=== PATIENT | female | born 1935 | race African-American/Black ===

== ENCOUNTER 2019-11-02 09:53 | Observation (INO) ==
[2019-11-02 10:49] LABS: Albumin 3.2 G/DL (3.4-5.0); Basophils % 0.7 % (0.0-0.8); Bilirubin,Total 0.4 MG/DL (0.2-1.0); Calcium 8.6 MG/DL (8.5-10.1); Eosinophils % 0.3 % (0.00-10.9); Hematocrit 35.4 VOL% (35.7-47.0); Hemoglobin 11.7 GM/DL (12.0-16.0); Immature Granulocytes % 0.3 %; Immature Granulocytes Absolute 0.02 #; Lymphocytes # 1.5 10*3/uL (1.4-4.0); Lymphocytes % 26.7 % (21.3-54.2); Mean Corpuscular HGB Conc 33.1 GM/DL (32-36); Mean Corpuscular Volume 96.7 FL (87-102); Mean Platelet Volume 8.8 FL (9.6-12.0); Monocytes % 8.8 % (1.7-12.7); Neutrophils % 63.2 % (38.7-73.9); Osmolality,Calculated 269.8 MOS/KG (273-304); Platelet Count 233 T/CUMM (130-400); Red Blood Count 3.66 MC/CUMM (3.8-5.5); Red Cell Distribution Width 14.3 % (9.3-17.3); Total Protein 5.9 G/DL (6.4-8.3); White Blood Count 5.8 T/CUMM (4-12)
[2019-11-02] MEDS ORDERED: MORPHINE 4 MG/1 ML VIAL IV STA ×2 (11:01→12:17)
[2019-11-02] MEDS ORDERED: ONDANSETRON 4 MG/2 ML VIAL IV STA (11:01)
[2019-11-02 12:18] LABS: Apearance,Urine CLEAR (Clear); Bilirubin,Urine Negative (Negative); Blood, Urine Negative (Negative); Glucose,Urine (UA) Negative (Negative); Ketones,Urine Negative (Negative); Nitrite,Urine Negative (Negative); Protein,Urine Negative; RBC,Urine 2 /HPF (0-4); Squamous Epithelial Cell,Urine Occasional /HPF (0-10); Urine Color Yellow (Yellow); Urine Specific Gravity 1.011 (1.001-1.035); Urine Urobilinogen < 2.0 EU/DL (0.2-1.0); WBC,Urine 1 /HPF (0-6)
[2019-11-02] MEDS ORDERED: ONDANSETRON 4 MG/2 ML VIAL IV PRN (13:44)
[2019-11-02] MEDS: SODIUM CHLORIDE 0.9% 1,000 ML IV SCH (14:03)
[2019-11-02] MEDS ORDERED: hydrALAZINE 20 MG/1 ML VIAL IV PRN (16:14)
[2019-11-02] MEDS ORDERED: MAGNESIUM SULF RIDER 2 GM in PREMIX 1 EACH IV PRN (16:14)
[2019-11-02] MEDS ORDERED: MAGNESIUM SULF RIDER 4 GM in PREMIX 1 EACH IV PRN (16:14)
[2019-11-02] MEDS: POTASSIUM CHLORIDE RIDER 10 MEQ in PREMIX 1 EACH IV PRN ×4 (17:19→23:13)
[2019-11-02] MEDS: POTASSIUM CHLORIDE 10 MEQ TABLET PO SCH (21:29)
[2019-11-02] MEDS: DOCUSATE SODIUM 100 MG CAPSULE PO SCH (21:29)
[2019-11-03] MEDS: ACETAMINOPHEN 325 MG TABLET PO PRN ×2 (00:22→17:36)
[2019-11-03 06:39] LABS: Calcium 8.3 MG/DL (8.5-10.1); Osmolality,Calculated 276.3 MOS/KG (273-304)
[2019-11-03] MEDS: SODIUM CHLORIDE 0.9% 1,000 ML IV SCH (09:17)
[2019-11-03] MEDS: TAMOXIFEN 10 MG TABLET PO SCH (09:18)
[2019-11-03] MEDS: POTASSIUM CHLORIDE 10 MEQ TABLET PO SCH ×2 (09:18→21:45)
[2019-11-03] MEDS: PANTOPRAZOLE 40 MG TABLET PO SCH (09:19)
[2019-11-03] MEDS: ASPIRIN EC 81 MG TABLET PO SCH (09:19)
[2019-11-03] MEDS: DOCUSATE SODIUM 100 MG CAPSULE PO SCH ×2 (09:19→21:45)
[2019-11-03] MEDS: metroNIDAZOLE INJ 500 MG in PREMIX 1 EACH IV SCH ×2 (14:32→21:44)
[2019-11-03] MEDS: CIPROFLOXACIN INJ 400 MG in PREMIX 1 EACH IV SCH (16:41)
[2019-11-04] MEDS: ACETAMINOPHEN 325 MG TABLET PO PRN ×2 (01:06→18:24)
[2019-11-04] MEDS: SODIUM CHLORIDE 0.9% 1,000 ML IV SCH ×2 (01:10→21:25)
[2019-11-04] MEDS: CIPROFLOXACIN INJ 400 MG in PREMIX 1 EACH IV SCH ×2 (03:34→16:34)
[2019-11-04] MEDS: metroNIDAZOLE INJ 500 MG in PREMIX 1 EACH IV SCH ×3 (05:35→20:41)
[2019-11-04] MEDS ORDERED: SIMETHICONE CHEW 125 MG TABLET PO PRN (05:56)
[2019-11-04 06:06] LABS: Calcium 8.3 MG/DL (8.5-10.1); Osmolality,Calculated 274.5 MOS/KG (273-304)
[2019-11-04] MEDS ORDERED: LORazepam 2 MG/1 ML VIAL IV PRN (09:22)
[2019-11-04] MEDS: POTASSIUM CHLORIDE 10 MEQ TABLET PO SCH ×2 (09:57→20:41)
[2019-11-04] MEDS: PANTOPRAZOLE 40 MG TABLET PO SCH (09:57)
[2019-11-04] MEDS: DOCUSATE SODIUM 100 MG CAPSULE PO SCH ×2 (09:58→20:41)
[2019-11-04] MEDS: ASPIRIN EC 81 MG TABLET PO SCH (09:58)
[2019-11-04] MEDS: TAMOXIFEN 10 MG TABLET PO SCH (10:05)
[2019-11-04] MEDS ORDERED: traMADol 50 MG TABLET PO ONE (11:00)
[2019-11-04] MEDS ORDERED: SERTRALINE 25 MG TABLET PO SCH (21:00)
[2019-11-05] MEDS: CIPROFLOXACIN INJ 400 MG in PREMIX 1 EACH IV SCH (03:39)
[2019-11-05] MEDS: metroNIDAZOLE INJ 500 MG in PREMIX 1 EACH IV SCH (05:30)
[2019-11-05 05:43] LABS: Osmolality,Calculated 280.1 MOS/KG (273-304)
[2019-11-05] MEDS: TAMOXIFEN 10 MG TABLET PO SCH (08:42)
[2019-11-05] MEDS: ASPIRIN EC 81 MG TABLET PO SCH (08:42)
[2019-11-05] MEDS: POTASSIUM CHLORIDE 10 MEQ TABLET PO SCH (08:42)
[2019-11-05] MEDS: PANTOPRAZOLE 40 MG TABLET PO SCH (08:42)
[2019-11-05] MEDS: DOCUSATE SODIUM 100 MG CAPSULE PO SCH (08:42)
[2019-11-05 11:29] VITALS: BP 148/70
== END 2019-11-05 13:59 ==
LOC: N.ED 09:53 → N.EDINP 09:53 → N.2E 13:30
PROVIDERS: ADMIT Family Medicine; ATTEND Family Medicine

== ENCOUNTER 2020-05-30 09:51 | Inpatient (IN) ==
[2020-05-30 10:51] LABS: Basophils % 0.6 % (0.0-0.8); Eosinophils % 0.4 % (0.00-10.9); Hematocrit 38.4 VOL% (35.7-47.0); Hemoglobin 12.7 GM/DL (12.0-16.0); Immature Granulocytes % 0.7 %; Immature Granulocytes Absolute 0.05 #; Lymphocytes # 1.6 10*3/uL (1.4-4.0); Lymphocytes % 22.8 % (21.3-54.2); Mean Corpuscular HGB Conc 33.1 GM/DL (32-36); Mean Corpuscular Volume 99.5 FL (87-102); Mean Platelet Volume 8.7 FL (9.6-12.0); Monocytes % 7.4 % (1.7-12.7); Neutrophils % 68.1 % (38.7-73.9); Platelet Count 236 T/CUMM (130-400); Red Blood Count 3.86 MC/CUMM (3.8-5.5); Red Cell Distribution Width 13.2 % (9.3-17.3); White Blood Count 6.9 T/CUMM (4-12)
[2020-05-30] MEDS ORDERED: ONDANSETRON 4 MG/2 ML VIAL IM STA (11:13)
[2020-05-30] MEDS ORDERED: ONDANSETRON 4 MG/2 ML VIAL ONE (11:14)
[2020-05-30 11:19] LABS: Albumin 3.6 G/DL (3.4-5.0); Bilirubin,Total 0.5 MG/DL (0.2-1.0); Calcium 9.8 MG/DL (8.5-10.1); Osmolality,Calculated 276.7 MOS/KG (273-304); Total Protein 7.7 G/DL (6.4-8.3)
[2020-05-30] MEDS ORDERED: DEXTROSE 50% 25 GM/50 ML VIAL IV PRN (11:52)
[2020-05-30] MEDS ORDERED: GLUCAGON 1 MG VIAL IM PRN (11:52)
[2020-05-30] MEDS ORDERED: ACETAMINOPHEN 325 MG TABLET PO PRN (11:52)
[2020-05-30] MEDS: SODIUM CHLORIDE 0.9% 1,000 ML IV SCH ×2 (12:56→23:00)
[2020-05-30 15:11] LABS: Apearance,Urine Slightly Hazy (Clear); Bilirubin,Urine Negative (Negative); Blood, Urine Negative (Negative); Glucose,Urine (UA) Negative (Negative); Ketones,Urine Negative (Negative); Mucus,Urine Occasional /LPF (Occasional); Nitrite,Urine Negative (Negative); Protein,Urine 30 MG/DL; RBC,Urine 14 /HPF (0-4); Squamous Epithelial Cell,Urine Occasional /HPF (0-10); Urine Color Yellow (Yellow); Urine Specific Gravity 1.017 (1.001-1.035); Urine Urobilinogen < 2.0 EU/DL (0.2-1.0); WBC,Urine 6 /HPF (0-6)
[2020-05-30] MEDS ORDERED: ACETAMINOPHEN 325 MG TABLET PO ONE (15:57)
[2020-05-30] MEDS: cefTRIAXone 1,000 MG in SYRINGE 1 EACH IV SCH (16:14)
[2020-05-30] MEDS: traMADol 50 MG TABLET PO PRN (16:19)
[2020-05-30] MEDS: POLYETHYLENE GLYCOL POWDER 17 GM PACK PO SCH (17:40)
[2020-05-31 04:54] LABS: Basophils % 0.7 % (0.0-0.8); Eosinophils # 0.1 10*3/uL (0.0-0.87); Eosinophils % 0.9 % (0.00-10.9); Hematocrit 35.3 VOL% (35.7-47.0); Hemoglobin 11.6 GM/DL (12.0-16.0); Immature Granulocytes % 0.2 %; Immature Granulocytes Absolute 0.01 #; Lymphocytes # 1.5 10*3/uL (1.4-4.0); Lymphocytes % 27.6 % (21.3-54.2); Mean Corpuscular HGB Conc 32.9 GM/DL (32-36); Mean Corpuscular Volume 97.5 FL (87-102); Monocytes % 10.9 % (1.7-12.7); Neutrophils % 59.7 % (38.7-73.9); Platelet Count 220 T/CUMM (130-400); Red Blood Count 3.62 MC/CUMM (3.8-5.5); Red Cell Distribution Width 13.4 % (9.3-17.3); White Blood Count 5.6 T/CUMM (4-12)
[2020-05-31] MEDS: ONDANSETRON 4 MG/2 ML VIAL IV PRN ×2 (05:27→14:27)
[2020-05-31] MEDS: traMADol 50 MG TABLET PO PRN ×2 (05:27→14:27)
[2020-05-31 05:50] LABS: Calcium 8.8 MG/DL (8.5-10.1); Osmolality,Calculated 278.4 MOS/KG (273-304); Risk Ratio 3.22; Thyroid Stimulating Hormone 0.596 uIU/ml (0.358-3.74)
[2020-05-31] MEDS: SODIUM CHLORIDE 0.9% 1,000 ML IV SCH ×2 (09:15→17:28)
[2020-05-31] MEDS: POLYETHYLENE GLYCOL POWDER 17 GM PACK PO SCH (09:17)
[2020-05-31] MEDS: cefTRIAXone 1,000 MG in SYRINGE 1 EACH IV SCH (17:32)
[2020-06-01] MEDS: CLORAZEPATE 3.75 MG TABLET PO PRN ×2 (00:30→21:09)
[2020-06-01] MEDS: SODIUM CHLORIDE 0.9% 1,000 ML IV SCH ×3 (05:18→23:52)
[2020-06-01 05:56] LABS: Basophils % 0.6 % (0.0-0.8); Eosinophils % 0.6 % (0.00-10.9); Hematocrit 35.8 VOL% (35.7-47.0); Immature Granulocytes % 0.3 %; Immature Granulocytes Absolute 0.02 #; Lymphocytes # 2.3 10*3/uL (1.4-4.0); Lymphocytes % 36.3 % (21.3-54.2); Mean Corpuscular HGB Conc 33.5 GM/DL (32-36); Mean Corpuscular Volume 97.8 FL (87-102); Mean Platelet Volume 9.4 FL (9.6-12.0); Monocytes % 9.8 % (1.7-12.7); Neutrophils % 52.4 % (38.7-73.9); Platelet Count 227 T/CUMM (130-400); Red Blood Count 3.66 MC/CUMM (3.8-5.5); Red Cell Distribution Width 13.2 % (9.3-17.3); White Blood Count 6.3 T/CUMM (4-12)
[2020-06-01 06:19] LABS: Calcium 8.6 MG/DL (8.5-10.1); Osmolality,Calculated 278.3 MOS/KG (273-304)
[2020-06-01] MEDS ORDERED: LACTATED RINGERS 1,000 ML IV SCH (08:00)
[2020-06-01] MEDS ORDERED: propofoL 200 MG/20 ML VIAL IV ONE (09:00)
[2020-06-01] MEDS ORDERED: LIDOCAINE 2% 5 ML VIAL ONE (09:00)
[2020-06-01] MEDS: POLYETHYLENE GLYCOL POWDER 17 GM PACK PO SCH (09:59)
[2020-06-01] MEDS: traMADol 50 MG TABLET PO PRN (17:01)
[2020-06-01] MEDS: cefTRIAXone 1,000 MG in SYRINGE 1 EACH IV SCH (17:02)
[2020-06-02] MEDS: ONDANSETRON 4 MG/2 ML VIAL IV PRN (05:49)
[2020-06-02 06:47] LABS: Calcium 8.4 MG/DL (8.5-10.1); Osmolality,Calculated 279.1 MOS/KG (273-304)
[2020-06-02 08:22] LABS: Basophils % 0.3 % (0.0-0.8); Eosinophils # 0.1 10*3/uL (0.0-0.87); Eosinophils % 1.2 % (0.00-10.9); Hematocrit 35.2 VOL% (35.7-47.0); Hemoglobin 11.8 GM/DL (12.0-16.0); Immature Granulocytes % 0.2 %; Immature Granulocytes Absolute 0.01 #; Lymphocytes # 1.8 10*3/uL (1.4-4.0); Mean Corpuscular HGB Conc 33.5 GM/DL (32-36); Mean Corpuscular Volume 97.5 FL (87-102); Monocytes % 10.7 % (1.7-12.7); Neutrophils % 56.6 % (38.7-73.9); Platelet Count 216 T/CUMM (130-400); Red Blood Count 3.61 MC/CUMM (3.8-5.5); Red Cell Distribution Width 13.2 % (9.3-17.3); White Blood Count 5.9 T/CUMM (4-12)
[2020-06-02] MEDS: POLYETHYLENE GLYCOL POWDER 17 GM PACK PO SCH (09:21)
[2020-06-02 12:21] VITALS: BP 164/79
== END 2020-06-02 13:50 | disposition home health service (06) | DRG 392 ==
LOC: N.ED 09:51 → N.EDINP 11:43 → N.TELEN 13:57
PROVIDERS: ADMIT Internal Medicine; ATTEND Internal Medicine

== ENCOUNTER 2020-07-14 23:15 | Inpatient (IN) ==
[2020-07-14] MEDS ORDERED: SODIUM CHLORIDE 0.9% 500 ML IV STA (23:33)
[2020-07-14] MEDS ORDERED: ASPIRIN 325 MG TABLET PO STA (23:33)
[2020-07-14 23:50] LABS: Basophils # 0.1 10*3/uL (0.0-0.2); Basophils % 0.6 % (0.0-0.8); Eosinophils # 0.1 10*3/uL (0.0-0.87); Eosinophils % 1.1 % (0.00-10.9); Hematocrit 39.3 VOL% (35.7-47.0); Hemoglobin 12.6 GM/DL (12.0-16.0); Immature Granulocytes % 0.4 %; Immature Granulocytes Absolute 0.03 #; Lymphocytes # 1.8 10*3/uL (1.4-4.0); Lymphocytes % 21.9 % (21.3-54.2); Mean Corpuscular HGB Conc 32.1 GM/DL (32-36); Mean Corpuscular Volume 101.8 FL (87-102); Mean Platelet Volume 9.3 FL (9.6-12.0); Monocytes % 6.7 % (1.7-12.7); Neutrophils % 69.3 % (38.7-73.9); Platelet Count 181 T/CUMM (130-400); Red Blood Count 3.86 MC/CUMM (3.8-5.5); Red Cell Distribution Width 13.2 % (9.3-17.3); White Blood Count 8.4 T/CUMM (4-12)
[2020-07-15 00:03] LABS: INR 1.1; PT Patient Result 11.7 SECS (9.8-11.9)
[2020-07-15 00:12] LABS: Alanine Aminotransferase 81 U/L (13-56); Albumin 3.1 G/DL (3.4-5.0); Alkaline Phosphatase 105 U/L (45-117); Aspartate Amino Transferase 73 U/L (0-37); Blood Urea Nitrogen 20 MG/DL (7-18); Calcium 9.4 MG/DL (8.5-10.1); Estimated Glom Filtration Rate 44 ML/MIN; Glucose 126 MG/DL (74-106); Osmolality,Calculated 281.5 MOS/KG (273-304); Total Protein 7.6 G/DL (6.4-8.3)
[2020-07-15 00:14] LABS: Troponin I 0.132 NG/ML (0.00-0.045)
[2020-07-15] MEDS ORDERED: HEPARIN DRIP 25,000 UNITS/500 ML PREMIX IV SCH (00:30)
[2020-07-15] MEDS ORDERED: ALBUTEROL 2.5 MG/3 ML NEB RESP TX STA (00:56)
[2020-07-15] MEDS ORDERED: HEPARIN 5,000 UNIT/1 ML VIAL IV PRN (00:57)
[2020-07-15] MEDS ORDERED: ONDANSETRON 4 MG/2 ML VIAL IV PRN (01:15)
[2020-07-15] MEDS ORDERED: ACETAMINOPHEN 325 MG TABLET PO PRN (01:15)
[2020-07-15] MEDS ORDERED: GLUCAGON 1 MG VIAL IM PRN (01:15)
[2020-07-15] MEDS ORDERED: DEXTROSE 50% 25 GM/50 ML VIAL IV PRN (01:15)
[2020-07-15 02:27] LABS: ABG Base Excess -0.1 MMOL/L (-2.5-2.5); ABG HCO3 24.3 MMOL/L (20-26); ABG Oxygen Saturation 94.7 % (95-100); ABG PCO2 34.3 MM HG (35-48); ABG PH 7.444 (7.35-7.45); ABG PO2 75.6 MM HG (80-95); ABG TCO2 20.9 MMOL/L (23-27)
[2020-07-15 02:29] LABS: Bilirubin,Urine Negative (Negative); Blood, Urine Negative (Negative); Glucose,Urine (UA) Negative (Negative); Granular Casts,Urine 4 /LPF (0-1); Ketones,Urine Negative (Negative); Mucus,Urine Occasional /LPF (Occasional); Nitrite,Urine Negative (Negative); Protein,Urine 30 MG/DL; RBC,Urine 1 /HPF (0-4); Urine Appearance CLEAR (Clear); Urine Color Amber (Yellow); Urine Specific Gravity 1.023 (1.001-1.035); Urine Urobilinogen < 2.0 EU/DL (0.2-1.0)
[2020-07-15] MEDS: CLORAZEPATE 3.75 MG TABLET PO PRN ×2 (04:31→12:38)
[2020-07-15 06:44] LABS: Basophils # 0.1 10*3/uL (0.0-0.2); Basophils % 0.7 % (0.0-0.8); Eosinophils # 0.1 10*3/uL (0.0-0.87); Eosinophils % 0.9 % (0.00-10.9); Hematocrit 37.9 VOL% (35.7-47.0); Hemoglobin 11.9 GM/DL (12.0-16.0); Immature Granulocytes % 0.4 %; Immature Granulocytes Absolute 0.03 #; Lymphocytes # 1.6 10*3/uL (1.4-4.0); Lymphocytes % 22.9 % (21.3-54.2); Mean Corpuscular HGB Conc 31.4 GM/DL (32-36); Mean Corpuscular Volume 101.1 FL (87-102); Mean Platelet Volume 9.5 FL (9.6-12.0); Monocytes % 7.4 % (1.7-12.7); Neutrophils % 67.7 % (38.7-73.9); Platelet Count 170 T/CUMM (130-400); Red Blood Count 3.75 MC/CUMM (3.8-5.5); Red Cell Distribution Width 13.2 % (9.3-17.3); White Blood Count 6.9 T/CUMM (4-12)
[2020-07-15 07:00] LABS: Calcium 9.5 MG/DL (8.5-10.1); Osmolality,Calculated 278.5 MOS/KG (273-304); Risk Ratio 4.84
[2020-07-15] MEDS: ALBUTEROL/IPRATROPIUM 3 ML NEB RESP TX SCH ×3 (07:57→19:25)
[2020-07-15] MEDS ORDERED: POLYETHYLENE GLYCOL POWDER 255 GM BOTTLE PO SCH (09:00)
[2020-07-15] MEDS: POTASSIUM CHLORIDE 10 MEQ TABLET PO SCH ×2 (09:06→21:25)
[2020-07-15] MEDS: APIXABAN 5 MG TABLET PO SCH ×2 (09:06→21:25)
[2020-07-15] MEDS: POLYETHYLENE GLYCOL POWDER 17 GM PACK PO SCH (09:07)
[2020-07-15] MEDS: PANTOPRAZOLE 40 MG TABLET PO SCH ×2 (09:07→09:08)
[2020-07-15] MEDS: GABAPENTIN 100 MG CAPSULE PO SCH ×3 (09:07→21:25)
[2020-07-15] MEDS: FAMOTIDINE 20 MG TABLET PO SCH ×2 (09:07→21:24)
[2020-07-15] MEDS: OXcarbazepine 300 MG TABLET PO SCH (10:24)
[2020-07-15] MEDS: TAMOXIFEN 10 MG TABLET PO SCH (10:25)
[2020-07-15] MEDS: lisinopriL 10 MG TABLET PO SCH (10:25)
[2020-07-15] MEDS: HALOPERIDOL 5 MG/ML AMP IM PRN (14:30)
[2020-07-15] MEDS: DONEPEZIL 5 MG TABLET PO SCH (21:25)
[2020-07-15] MEDS: ZALEPLON 5 MG CAPSULE PO SCH (21:25)
[2020-07-16] MEDS: ALBUTEROL/IPRATROPIUM 3 ML NEB RESP TX SCH ×4 (00:22→20:45)
[2020-07-16 04:58] LABS: Basophils # 0.1 10*3/uL (0.0-0.2); Basophils % 0.9 % (0.0-0.8); Eosinophils # 0.1 10*3/uL (0.0-0.87); Hematocrit 35.5 VOL% (35.7-47.0); Hemoglobin 11.4 GM/DL (12.0-16.0); Immature Granulocytes % 0.4 %; Immature Granulocytes Absolute 0.03 #; Lymphocytes # 1.8 10*3/uL (1.4-4.0); Lymphocytes % 25.2 % (21.3-54.2); Mean Corpuscular HGB Conc 32.1 GM/DL (32-36); Mean Corpuscular Volume 100.9 FL (87-102); Mean Platelet Volume 9.2 FL (9.6-12.0); Monocytes % 7.6 % (1.7-12.7); Neutrophils % 63.9 % (38.7-73.9); Platelet Count 209 T/CUMM (130-400); Red Blood Count 3.52 MC/CUMM (3.8-5.5); Red Cell Distribution Width 13.2 % (9.3-17.3)
[2020-07-16 05:19] LABS: Calcium 9.2 MG/DL (8.5-10.1); Osmolality,Calculated 285.1 MOS/KG (273-304)
[2020-07-16] MEDS: POLYETHYLENE GLYCOL POWDER 17 GM PACK PO SCH (09:02)
[2020-07-16] MEDS: PANTOPRAZOLE 40 MG TABLET PO SCH ×2 (09:04→09:05)
[2020-07-16] MEDS: FAMOTIDINE 20 MG TABLET PO SCH ×2 (09:05→20:28)
[2020-07-16] MEDS: APIXABAN 5 MG TABLET PO SCH ×2 (09:05→20:28)
[2020-07-16] MEDS: lisinopriL 10 MG TABLET PO SCH (09:05)
[2020-07-16] MEDS: POTASSIUM CHLORIDE 10 MEQ TABLET PO SCH ×2 (09:06→20:28)
[2020-07-16] MEDS: GABAPENTIN 100 MG CAPSULE PO SCH ×3 (09:07→20:28)
[2020-07-16] MEDS: TAMOXIFEN 10 MG TABLET PO SCH (09:34)
[2020-07-16] MEDS ORDERED: HALOPERIDOL 5 MG/ML AMP IM ONE (13:34)
[2020-07-16] MEDS: HALOPERIDOL 5 MG/ML AMP IM PRN ×2 (13:44→21:12)
[2020-07-16] MEDS: OXcarbazepine 300 MG TABLET PO SCH (13:51)
[2020-07-16] MEDS: QUEtiapine 25 MG TABLET PO SCH ×2 (15:54→20:28)
[2020-07-16] MEDS: CLORAZEPATE 3.75 MG TABLET PO PRN (16:48)
[2020-07-16] MEDS: DONEPEZIL 5 MG TABLET PO SCH (20:28)
[2020-07-16] MEDS: ZALEPLON 5 MG CAPSULE PO SCH (20:28)
[2020-07-17] MEDS: ALBUTEROL/IPRATROPIUM 3 ML NEB RESP TX SCH ×4 (01:57→19:25)
[2020-07-17 07:17] LABS: Basophils % 0.6 % (0.0-0.8); Eosinophils # 0.1 10*3/uL (0.0-0.87); Eosinophils % 2.7 % (0.00-10.9); Hematocrit 34.5 VOL% (35.7-47.0); Hemoglobin 10.9 GM/DL (12.0-16.0); Immature Granulocytes % 0.4 %; Immature Granulocytes Absolute 0.02 #; Lymphocytes % 19.8 % (21.3-54.2); Mean Corpuscular HGB Conc 31.6 GM/DL (32-36); Mean Corpuscular Volume 102.7 FL (87-102); Mean Platelet Volume 9.3 FL (9.6-12.0); Monocytes % 8.4 % (1.7-12.7); Neutrophils % 68.1 % (38.7-73.9); Platelet Count 241 T/CUMM (130-400); Red Blood Count 3.36 MC/CUMM (3.8-5.5); Red Cell Distribution Width 13.3 % (9.3-17.3); White Blood Count 5.3 T/CUMM (4-12)
[2020-07-17 07:22] LABS: Calcium 9.4 MG/DL (8.5-10.1); Osmolality,Calculated 280.4 MOS/KG (273-304)
[2020-07-17] MEDS: FAMOTIDINE 20 MG TABLET PO SCH ×2 (09:58→21:05)
[2020-07-17] MEDS: OXcarbazepine 300 MG TABLET PO SCH (09:58)
[2020-07-17] MEDS: PANTOPRAZOLE 40 MG TABLET PO SCH (09:58)
[2020-07-17] MEDS: POTASSIUM CHLORIDE 10 MEQ TABLET PO SCH ×2 (09:58→21:05)
[2020-07-17] MEDS: lisinopriL 10 MG TABLET PO SCH (09:58)
[2020-07-17] MEDS: TAMOXIFEN 10 MG TABLET PO SCH (09:58)
[2020-07-17] MEDS: APIXABAN 5 MG TABLET PO SCH ×2 (09:58→21:05)
[2020-07-17] MEDS: GABAPENTIN 100 MG CAPSULE PO SCH ×3 (09:58→21:05)
[2020-07-17] MEDS: QUEtiapine 25 MG TABLET PO SCH ×3 (09:58→21:05)
[2020-07-17] MEDS: POLYETHYLENE GLYCOL POWDER 17 GM PACK PO SCH (09:58)
[2020-07-17] MEDS: HALOPERIDOL 5 MG/ML AMP IM PRN (13:58)
[2020-07-17] MEDS: ZALEPLON 5 MG CAPSULE PO SCH (21:05)
[2020-07-17] MEDS: DONEPEZIL 5 MG TABLET PO SCH (21:05)
[2020-07-18] MEDS: ALBUTEROL/IPRATROPIUM 3 ML NEB RESP TX SCH ×4 (00:45→19:38)
[2020-07-18 04:25] LABS: Basophils % 0.5 % (0.0-0.8); Eosinophils # 0.1 10*3/uL (0.0-0.87); Eosinophils % 2.2 % (0.00-10.9); Hematocrit 32.4 VOL% (35.7-47.0); Hemoglobin 10.5 GM/DL (12.0-16.0); Immature Granulocytes % 0.3 %; Immature Granulocytes Absolute 0.02 #; Lymphocytes # 1.4 10*3/uL (1.4-4.0); Lymphocytes % 23.9 % (21.3-54.2); Mean Corpuscular HGB Conc 32.4 GM/DL (32-36); Mean Corpuscular Volume 101.3 FL (87-102); Monocytes % 8.2 % (1.7-12.7); Neutrophils % 64.9 % (38.7-73.9); Platelet Count 238 T/CUMM (130-400); Red Cell Distribution Width 13.2 % (9.3-17.3)
[2020-07-18 04:44] LABS: Calcium 8.8 MG/DL (8.5-10.1); Osmolality,Calculated 279.4 MOS/KG (273-304)
[2020-07-18 04:48] LABS: % Iron Saturation 15.3 % (18-50); Ferritin 126.7 ng/ml (8-252)
[2020-07-18 04:59] LABS: Folate 15.2 NG/ML (5.4-24.0); Vitamin B12 805 PG/ML (211-911)
[2020-07-18 06:26] LABS: Sedimentation Rate-Westergren 53 MM/HR (0-30)
[2020-07-18] MEDS: OXcarbazepine 300 MG TABLET PO SCH (08:12)
[2020-07-18] MEDS: POLYETHYLENE GLYCOL POWDER 17 GM PACK PO SCH ×2 (08:41→08:52)
[2020-07-18] MEDS: FAMOTIDINE 20 MG TABLET PO SCH ×2 (08:41→20:53)
[2020-07-18] MEDS: PANTOPRAZOLE 40 MG TABLET PO SCH (08:41)
[2020-07-18] MEDS: APIXABAN 5 MG TABLET PO SCH ×2 (08:42→20:52)
[2020-07-18] MEDS: TAMOXIFEN 10 MG TABLET PO SCH (08:42)
[2020-07-18] MEDS: lisinopriL 10 MG TABLET PO SCH (08:42)
[2020-07-18] MEDS: POTASSIUM CHLORIDE 10 MEQ TABLET PO SCH ×2 (08:42→20:51)
[2020-07-18] MEDS: GABAPENTIN 100 MG CAPSULE PO SCH ×3 (08:43→20:51)
[2020-07-18] MEDS: QUEtiapine 25 MG TABLET PO SCH ×3 (08:43→20:51)
[2020-07-18] MEDS: DONEPEZIL 5 MG TABLET PO SCH (20:51)
[2020-07-18] MEDS: ZALEPLON 5 MG CAPSULE PO SCH (20:51)
[2020-07-19] MEDS: ALBUTEROL/IPRATROPIUM 3 ML NEB RESP TX SCH ×3 (01:30→14:00)
[2020-07-19] MEDS: HALOPERIDOL 5 MG/ML AMP IM PRN ×2 (07:16→15:24)
[2020-07-19 10:06] LABS: Hemoglobin A1 (Alkaline) 96.8 % (96.5-98.5); Hemoglobin A2 (Alkaline) 3.2 % (1.5-3.5)
[2020-07-19] MEDS: POTASSIUM CHLORIDE 10 MEQ TABLET PO SCH (10:39)
[2020-07-19] MEDS: FAMOTIDINE 20 MG TABLET PO SCH (10:40)
[2020-07-19] MEDS: POLYETHYLENE GLYCOL POWDER 17 GM PACK PO SCH (10:40)
[2020-07-19] MEDS: APIXABAN 5 MG TABLET PO SCH (10:40)
[2020-07-19] MEDS: GABAPENTIN 100 MG CAPSULE PO SCH ×2 (10:40→15:25)
[2020-07-19] MEDS: lisinopriL 10 MG TABLET PO SCH (10:40)
[2020-07-19] MEDS: PANTOPRAZOLE 40 MG TABLET PO SCH (10:41)
[2020-07-19] MEDS: OXcarbazepine 300 MG TABLET PO SCH (10:41)
[2020-07-19] MEDS: QUEtiapine 25 MG TABLET PO SCH (10:41)
[2020-07-19 11:12] VITALS: BP 113/47
[2020-07-19] MEDS ORDERED: FERROUS SULFATE 325 MG TABLET PO SCH (17:00)
[2020-07-19] MEDS ORDERED: QUEtiapine 25 MG TABLET PO SCH (21:00)
[2020-07-19] MEDS ORDERED: APIXABAN 5 MG TABLET PO SCH (21:00)
== END 2020-07-19 15:50 | DRG 176 ==
LOC: EDBD → EDUNIT# → N.ED 23:15 → SUATTDRO 07-15 01:15 → N.EDINP 07-15 01:15 → N.ICU 07-15 02:55 → N.3E 07-15 14:43
PROVIDERS: ADMIT Family Medicine; ATTEND Hospitalist

== ENCOUNTER 2021-02-13 20:38 | Inpatient (IN) ==
[2021-02-13] MEDS ORDERED: SODIUM CHLORIDE 0.9% 1,000 ML IV STA (21:29)
[2021-02-13 22:00] LABS: Basophils % 0.6 % (0.0-0.8); Eosinophils # 0.1 10*3/uL (0.0-0.87); Eosinophils % 0.7 % (0.00-10.9); Hematocrit 39.9 VOL% (35.7-47.0); Hemoglobin 13.2 GM/DL (12.0-16.0); Immature Granulocytes % 0.1 %; Immature Granulocytes Absolute 0.01 #; Lymphocytes # 1.4 10*3/uL (1.4-4.0); Lymphocytes % 20.4 % (21.3-54.2); Mean Corpuscular HGB Conc 33.1 GM/DL (32-36); Mean Corpuscular Volume 98.5 FL (87-102); Mean Platelet Volume 8.8 FL (9.6-12.0); Monocytes % 9.1 % (1.7-12.7); Neutrophils % 69.1 % (38.7-73.9); Platelet Count 263 T/CUMM (130-400); Red Blood Count 4.05 MC/CUMM (3.8-5.5)
[2021-02-13 22:19] LABS: Alanine Aminotransferase 17 U/L (13-56); Albumin 3.6 G/DL (3.4-5.0); Alkaline Phosphatase 163 U/L (45-117); Aspartate Amino Transferase 18 U/L (0-37); Bilirubin,Total < 0.39 MG/DL (0.2-1.0); Blood Urea Nitrogen 13 MG/DL (7-18); Calcium 10.6 MG/DL (8.5-10.1); Carbon Dioxide 29 MMOL/L (21-32); Estimated Glom Filtration Rate 61 ML/MIN; Glucose 108 MG/DL (74-106); Osmolality,Calculated 283.1 MOS/KG (273-304); Potassium 3.6 MMOL/L (3.5-5.1); Sodium 142 MMOL/L (136-145); Total Protein 7.5 G/DL (6.4-8.2)
[2021-02-13 22:37] LABS: Bilirubin,Urine Negative (Negative); Blood, Urine Moderate mg/dL (Negative); Glucose,Urine (UA) Negative (Negative); Ketones,Urine Negative (Negative); Mucus,Urine Occasional /LPF (Occasional); Nitrite,Urine Negative (Negative); Protein,Urine Negative; RBC,Urine 4 /HPF (0-4); Squamous Epithelial Cell,Urine Occasional /HPF (0-10); Transitional Epi Cells,Urine Occasional /HPF (<1); Urine Appearance Slightly Hazy (Clear); Urine Color Yellow (Yellow); Urine Specific Gravity 1.014 (1.001-1.035); Urine Urobilinogen < 2.0 EU/DL (0.2-1.0)
[2021-02-13 22:42] LABS: Barbiturates Screen,Urine Negative (Negative); Benzodiazepines Screen,Urine Positive (Negative); Cannabinoid Screen,Urine Negative (Negative); Opiate Screen,Urine Negative (Negative); Phencyclidine Screen,Urine Negative (Negative)
[2021-02-14] MEDS ORDERED: ACETAMINOPHEN 500 MG TABLET ONE (02:19)
[2021-02-14] MEDS ORDERED: GLUCAGON 1 MG VIAL IM PRN (02:20)
[2021-02-14] MEDS ORDERED: DEXTROSE 50% 25 GM/50 ML VIAL IV PRN (02:20)
[2021-02-14] MEDS ORDERED: ONDANSETRON 4 MG/2 ML VIAL ONE (02:25)
[2021-02-14] MEDS ORDERED: ACETAMINOPHEN 500 MG TABLET PO ONE (02:30)
[2021-02-14] MEDS: ONDANSETRON 4 MG/2 ML VIAL IV PRN (02:35)
[2021-02-14] MEDS ORDERED: LEVOFLOXACIN INJ 750 MG/150 ML PREMIX IV STA (02:44)
[2021-02-14] MEDS ORDERED: cloNIDine 0.1 MG TABLET ONE (03:24)
[2021-02-14] MEDS ORDERED: cloNIDine 0.1 MG TABLET PO ONE (03:30)
[2021-02-14] MEDS: ACETAMINOPHEN 325 MG TABLET PO PRN ×2 (05:31→20:45)
[2021-02-14] MEDS: HALOPERIDOL 5 MG/ML AMP IM PRN ×3 (07:40→18:51)
[2021-02-14] MEDS ORDERED: CLORAZEPATE 3.75 MG TABLET PO PRN (10:46)
[2021-02-14] MEDS ORDERED: ZALEPLON 5 MG CAPSULE PO PRN (10:46)
[2021-02-14] MEDS: cefTRIAXone 1,000 MG in SODIUM CHLORIDE 0.9% 100 ML IV SCH (12:18)
[2021-02-14] MEDS: QUEtiapine 25 MG TABLET PO SCH ×2 (12:18→20:17)
[2021-02-14] MEDS: PANTOPRAZOLE 40 MG TABLET PO SCH (12:18)
[2021-02-14] MEDS: OXcarbazepine 300 MG TABLET PO SCH ×2 (12:18→20:18)
[2021-02-14] MEDS: APIXABAN 2.5 MG TABLET PO SCH ×2 (12:18→20:18)
[2021-02-14] MEDS: METOPROLOL TARTRATE 25 MG TABLET PO SCH ×2 (16:03→20:18)
[2021-02-14] MEDS: FERROUS SULFATE 325 MG TABLET PO SCH (16:03)
[2021-02-14] MEDS: POTASSIUM CHLORIDE 10 MEQ TABLET PO SCH (20:18)
[2021-02-14] MEDS: DONEPEZIL 10 MG TABLET PO SCH (20:18)
[2021-02-14] MEDS: FAMOTIDINE 20 MG TABLET PO SCH (20:23)
[2021-02-15] MEDS: METOPROLOL TARTRATE 25 MG TABLET PO SCH ×4 (03:26→21:32)
[2021-02-15] MEDS: ONDANSETRON 4 MG/2 ML VIAL IV PRN (05:33)
[2021-02-15 06:23] LABS: Basophils % 0.7 % (0.0-0.8); Eosinophils # 0.1 10*3/uL (0.0-0.87); Eosinophils % 0.9 % (0.00-10.9); Hematocrit 38.3 VOL% (35.7-47.0); Hemoglobin 12.7 GM/DL (12.0-16.0); Immature Granulocytes % 0.2 %; Immature Granulocytes Absolute 0.01 #; Lymphocytes # 1.9 10*3/uL (1.4-4.0); Lymphocytes % 34.5 % (21.3-54.2); Mean Corpuscular HGB Conc 33.2 GM/DL (32-36); Mean Corpuscular Volume 98.7 FL (87-102); Mean Platelet Volume 8.8 FL (9.6-12.0); Monocytes % 8.7 % (1.7-12.7); Platelet Count 238 T/CUMM (130-400); Red Blood Count 3.88 MC/CUMM (3.8-5.5); Red Cell Distribution Width 13.2 % (9.3-17.3); White Blood Count 5.6 T/CUMM (4-12)
[2021-02-15 06:41] LABS: Calcium 10.2 MG/DL (8.5-10.1); Osmolality,Calculated 277.4 MOS/KG (273-304)
[2021-02-15] MEDS: APIXABAN 2.5 MG TABLET PO SCH ×2 (09:27→21:33)
[2021-02-15] MEDS: QUEtiapine 25 MG TABLET PO SCH ×2 (09:27→21:33)
[2021-02-15] MEDS: FAMOTIDINE 20 MG TABLET PO SCH ×2 (09:27→21:32)
[2021-02-15] MEDS: FERROUS SULFATE 325 MG TABLET PO SCH ×2 (09:27→16:59)
[2021-02-15] MEDS: POTASSIUM CHLORIDE 10 MEQ TABLET PO SCH ×2 (09:29→21:33)
[2021-02-15] MEDS: OXcarbazepine 300 MG TABLET PO SCH ×2 (09:30→21:32)
[2021-02-15] MEDS: PANTOPRAZOLE 40 MG TABLET PO SCH (09:31)
[2021-02-15] MEDS: POLYETHYLENE GLYCOL POWDER 17 GM PACK PO SCH (09:31)
[2021-02-15] MEDS: cefTRIAXone 1,000 MG in SODIUM CHLORIDE 0.9% 100 ML IV SCH (11:49)
[2021-02-15] MEDS: ACETAMINOPHEN 325 MG TABLET PO PRN (19:27)
[2021-02-15] MEDS: DONEPEZIL 10 MG TABLET PO SCH (21:32)
[2021-02-16] MEDS: METOPROLOL TARTRATE 25 MG TABLET PO SCH ×4 (04:02→21:33)
[2021-02-16] MEDS: FERROUS SULFATE 325 MG TABLET PO SCH ×2 (08:39→16:08)
[2021-02-16] MEDS: QUEtiapine 25 MG TABLET PO SCH ×2 (09:37→21:43)
[2021-02-16] MEDS: PANTOPRAZOLE 40 MG TABLET PO SCH (09:37)
[2021-02-16] MEDS: APIXABAN 2.5 MG TABLET PO SCH ×2 (09:37→21:35)
[2021-02-16] MEDS: POLYETHYLENE GLYCOL POWDER 17 GM PACK PO SCH (09:38)
[2021-02-16] MEDS: POTASSIUM CHLORIDE 10 MEQ TABLET PO SCH ×2 (09:38→21:41)
[2021-02-16] MEDS: FAMOTIDINE 20 MG TABLET PO SCH ×2 (09:39→21:33)
[2021-02-16] MEDS: OXcarbazepine 300 MG TABLET PO SCH ×2 (09:40→21:39)
[2021-02-16] MEDS: ERTAPENEM 1,000 MG in SODIUM CHLORIDE 0.9% 100 ML IV SCH (11:05)
[2021-02-16] MEDS: HALOPERIDOL 5 MG/ML AMP IM PRN (16:50)
[2021-02-16] MEDS: DONEPEZIL 10 MG TABLET PO SCH (21:37)
[2021-02-17] MEDS: METOPROLOL TARTRATE 25 MG TABLET PO SCH ×4 (03:13→21:25)
[2021-02-17 07:16] LABS: Calcium 10.6 MG/DL (8.5-10.1); Osmolality,Calculated 279.5 MOS/KG (273-304); Potassium 4.2 MMOL/L (3.5-5.1)
[2021-02-17] MEDS: POLYETHYLENE GLYCOL POWDER 17 GM PACK PO SCH (09:13)
[2021-02-17] MEDS: PANTOPRAZOLE 40 MG TABLET PO SCH (09:14)
[2021-02-17] MEDS: FERROUS SULFATE 325 MG TABLET PO SCH ×2 (09:14→17:44)
[2021-02-17] MEDS: FAMOTIDINE 20 MG TABLET PO SCH ×2 (09:14→21:36)
[2021-02-17] MEDS: QUEtiapine 25 MG TABLET PO SCH ×2 (09:14→21:36)
[2021-02-17] MEDS: POTASSIUM CHLORIDE 10 MEQ TABLET PO SCH ×2 (09:14→21:36)
[2021-02-17] MEDS: APIXABAN 2.5 MG TABLET PO SCH ×2 (09:14→21:36)
[2021-02-17] MEDS: OXcarbazepine 300 MG TABLET PO SCH ×2 (09:14→21:36)
[2021-02-17] MEDS: ERTAPENEM 1,000 MG in SODIUM CHLORIDE 0.9% 100 ML IV SCH (11:14)
[2021-02-17] MEDS ORDERED: LACTATED RINGERS 1,000 ML IV SCH (15:00)
[2021-02-17] MEDS: DONEPEZIL 10 MG TABLET PO SCH (21:36)
[2021-02-18] MEDS: METOPROLOL TARTRATE 25 MG TABLET PO SCH ×4 (03:20→21:08)
[2021-02-18 06:39] LABS: Basophils # 0.1 10*3/uL (0.0-0.2); Basophils % 0.6 % (0.0-0.8); Eosinophils # 0.1 10*3/uL (0.0-0.87); Eosinophils % 0.8 % (0.00-10.9); Hematocrit 42.9 VOL% (35.7-47.0); Hemoglobin 14.4 GM/DL (12.0-16.0); Immature Granulocytes % 0.3 %; Immature Granulocytes Absolute 0.03 #; Lymphocytes # 2.2 10*3/uL (1.4-4.0); Mean Corpuscular HGB Conc 33.6 GM/DL (32-36); Mean Platelet Volume 9.8 FL (9.6-12.0); Monocytes % 7.6 % (1.7-12.7); Neutrophils % 69.7 % (38.7-73.9); Platelet Count 254 T/CUMM (130-400); Red Blood Count 4.29 MC/CUMM (3.8-5.5); Red Cell Distribution Width 13.5 % (9.3-17.3); White Blood Count 10.5 T/CUMM (4-12)
[2021-02-18 07:02] LABS: Albumin 3.6 G/DL (3.4-5.0); Bilirubin,Total 0.9 MG/DL (0.2-1.0); Calcium 10.3 MG/DL (8.5-10.1); Osmolality,Calculated 282.4 MOS/KG (273-304); Potassium 3.7 MMOL/L (3.5-5.1); Total Protein 7.3 G/DL (6.4-8.2)
[2021-02-18] MEDS: FERROUS SULFATE 325 MG TABLET PO SCH ×2 (07:59→16:59)
[2021-02-18] MEDS: ACETAMINOPHEN 325 MG TABLET PO PRN ×2 (07:59→16:59)
[2021-02-18] MEDS: QUEtiapine 25 MG TABLET PO SCH ×2 (08:00→21:07)
[2021-02-18] MEDS: PANTOPRAZOLE 40 MG TABLET PO SCH (08:00)
[2021-02-18] MEDS: OXcarbazepine 300 MG TABLET PO SCH ×2 (08:00→21:07)
[2021-02-18] MEDS: FAMOTIDINE 20 MG TABLET PO SCH ×2 (08:00→21:08)
[2021-02-18] MEDS: POTASSIUM CHLORIDE 10 MEQ TABLET PO SCH ×2 (08:00→21:07)
[2021-02-18] MEDS: POLYETHYLENE GLYCOL POWDER 17 GM PACK PO SCH (08:01)
[2021-02-18] MEDS: APIXABAN 2.5 MG TABLET PO SCH ×2 (08:04→21:07)
[2021-02-18] MEDS: ERTAPENEM 1,000 MG in SODIUM CHLORIDE 0.9% 100 ML IV SCH (11:10)
[2021-02-18] MEDS: SODIUM CHLORIDE 0.9% 1,000 ML IV SCH ×2 (13:00→19:55)
[2021-02-18] MEDS: DONEPEZIL 10 MG TABLET PO SCH (21:08)
[2021-02-19] MEDS: SODIUM CHLORIDE 0.9% 1,000 ML IV SCH ×2 (02:35→09:11)
[2021-02-19] MEDS: METOPROLOL TARTRATE 25 MG TABLET PO SCH ×4 (02:56→21:31)
[2021-02-19] MEDS: OXcarbazepine 300 MG TABLET PO SCH ×2 (09:12→21:31)
[2021-02-19] MEDS: PANTOPRAZOLE 40 MG TABLET PO SCH (09:12)
[2021-02-19] MEDS: FAMOTIDINE 20 MG TABLET PO SCH ×2 (09:12→21:31)
[2021-02-19] MEDS: FERROUS SULFATE 325 MG TABLET PO SCH ×3 (09:12→16:46)
[2021-02-19] MEDS: APIXABAN 2.5 MG TABLET PO SCH ×2 (09:12→21:31)
[2021-02-19] MEDS: POTASSIUM CHLORIDE 10 MEQ TABLET PO SCH ×2 (09:12→21:31)
[2021-02-19] MEDS: QUEtiapine 25 MG TABLET PO SCH ×2 (09:12→21:31)
[2021-02-19] MEDS: POLYETHYLENE GLYCOL POWDER 17 GM PACK PO SCH (09:13)
[2021-02-19] MEDS: ERTAPENEM 1,000 MG in SODIUM CHLORIDE 0.9% 100 ML IV SCH (10:05)
[2021-02-19] MEDS: ACETAMINOPHEN 325 MG TABLET PO PRN ×2 (12:16→17:46)
[2021-02-19] MEDS ORDERED: SIMETHICONE CHEW 125 MG TABLET PO PRN (17:54)
[2021-02-19] MEDS: DONEPEZIL 10 MG TABLET PO SCH (21:32)
[2021-02-20] MEDS: METOPROLOL TARTRATE 25 MG TABLET PO SCH ×2 (04:19→09:25)
[2021-02-20] MEDS: POTASSIUM CHLORIDE 10 MEQ TABLET PO SCH (09:25)
[2021-02-20] MEDS: OXcarbazepine 300 MG TABLET PO SCH (09:25)
[2021-02-20] MEDS: QUEtiapine 25 MG TABLET PO SCH (09:25)
[2021-02-20] MEDS: APIXABAN 2.5 MG TABLET PO SCH (09:26)
[2021-02-20] MEDS: POLYETHYLENE GLYCOL POWDER 17 GM PACK PO SCH (09:26)
[2021-02-20] MEDS: PANTOPRAZOLE 40 MG TABLET PO SCH (09:26)
[2021-02-20] MEDS: FAMOTIDINE 20 MG TABLET PO SCH (09:26)
[2021-02-20] MEDS: FERROUS SULFATE 325 MG TABLET PO SCH (09:26)
[2021-02-20] MEDS: ERTAPENEM 1,000 MG in SODIUM CHLORIDE 0.9% 100 ML IV SCH (10:27)
[2021-02-20 11:43] VITALS: BP 144/54
== END 2021-02-20 14:16 | DRG 689 ==
LOC: EDBD → EDUNIT# → N.ED 20:38 → N.EDINP 20:38 → SUATTDRO 02-14 02:20 → N.3E 02-14 02:57 → SUATTDRO 02-16 13:46
PROVIDERS: ADMIT Internal Medicine; ATTEND Internal Medicine

== ENCOUNTER 2021-07-15 22:25 | Observation (INO) ==
[2021-07-15] MEDS ORDERED: SODIUM CHLORIDE 0.9% 1,000 ML IV STA (23:14)
[2021-07-15 23:32] LABS: Basophils % 0.3 % (0.0-0.8); Eosinophils % 0.2 % (0.00-10.9); Hematocrit 37.3 VOL% (35.7-47.0); Immature Granulocytes % 0.7 %; Immature Granulocytes Absolute 0.07 #; Lymphocytes # 1.1 10*3/uL (1.4-4.0); Lymphocytes % 10.4 % (21.3-54.2); Mean Corpuscular HGB Conc 32.2 GM/DL (32-36); Mean Corpuscular Volume 101.1 FL (87-102); Monocytes % 8.3 % (1.7-12.7); Neutrophils % 80.1 % (38.7-73.9); Platelet Count 170 T/CUMM (130-400); Red Blood Count 3.69 MC/CUMM (3.8-5.5); Red Cell Distribution Width 12.4 % (9.3-17.3); White Blood Count 10.3 T/CUMM (4-12)
[2021-07-15 23:53] LABS: Albumin 2.8 G/DL (3.4-5.0); Bilirubin,Total 0.4 MG/DL (0.20-1.00); Calcium 8.8 MG/DL (8.5-10.1); Osmolality,Calculated 287.1 MOS/KG (273-304); Potassium 3.7 MMOL/L (3.5-5.1); Total Protein 6.6 G/DL (6.4-8.2)
[2021-07-16 00:18] LABS: INR 2.4; PT Patient Result 25.1 SECS (10.5-12.0)
[2021-07-16 01:42] LABS: Amorphous Crystals,Urine Occasional /HPF (Few); Blood, Urine Negative (Negative); Glucose,Urine (UA) Negative (Negative); Hyaline Casts,Urine 33 /LPF (0-3); Ketones,Urine Negative (Negative); Mucus,Urine Many /LPF (Occasional); Nitrite,Urine Negative (Negative); Protein,Urine 100 MG/DL; RBC,Urine 28 /HPF (0-4); Squamous Epithelial Cell,Urine Occasional /HPF (0-10); Urine Appearance CLOUDY (Clear); Urine Color Amber (Yellow)
[2021-07-16 01:43] LABS: Bilirubin,Urine Small mg/dL (Negative)
[2021-07-16 01:57] LABS: Barbiturates Screen,Urine Negative (Negative); Benzodiazepines Screen,Urine Positive (Negative); Cannabinoid Screen,Urine Negative (Negative); Opiate Screen,Urine Negative (Negative); Phencyclidine Screen,Urine Negative (Negative)
[2021-07-16] MEDS ORDERED: GLUCAGON 1 MG VIAL IM PRN (04:42)
[2021-07-16] MEDS ORDERED: MAGNESIUM SULF RIDER 2 GM/50 ML PREMIX IV PRN (04:42)
[2021-07-16] MEDS ORDERED: POTASSIUM CHLORIDE RIDER 10 MEQ/100 ML PREMIX IV PRN (04:42)
[2021-07-16] MEDS ORDERED: DEXTROSE 50% 25 GM/50 ML VIAL IV PRN (04:42)
[2021-07-16] MEDS ORDERED: MAGNESIUM SULF RIDER 4 GM/100 ML PREMIX IV PRN (04:42)
[2021-07-16] MEDS ORDERED: ONDANSETRON 4 MG/2 ML VIAL IV PRN (04:42)
[2021-07-16] MEDS ORDERED: ENOXAPARIN 40 MG/0.4 ML SYRINGE SUBCUT SCH (05:00)
[2021-07-16] MEDS ORDERED: LACTATED RINGERS 1,000 ML IV SCH (05:00)
[2021-07-16 05:39] LABS: Basophils % 0.3 % (0.0-0.8); Eosinophils % 0.1 % (0.00-10.9); Hematocrit 38.6 VOL% (35.7-47.0); Hemoglobin 12.1 GM/DL (12.0-16.0); Immature Granulocytes % 0.4 %; Immature Granulocytes Absolute 0.03 #; Lymphocytes # 1.3 10*3/uL (1.4-4.0); Lymphocytes % 18.8 % (21.3-54.2); Mean Corpuscular HGB Conc 31.3 GM/DL (32-36); Mean Corpuscular Volume 101.8 FL (87-102); Mean Platelet Volume 9.3 FL (9.6-12.0); Monocytes % 9.5 % (1.7-12.7); Neutrophils % 70.9 % (38.7-73.9); Platelet Count 148 T/CUMM (130-400); Red Blood Count 3.79 MC/CUMM (3.8-5.5); Red Cell Distribution Width 12.5 % (9.3-17.3); White Blood Count 6.7 T/CUMM (4-12)
[2021-07-16 06:00] LABS: Calcium 9.2 MG/DL (8.5-10.1); Osmolality,Calculated 285.3 MOS/KG (273-304); Potassium 4.2 MMOL/L (3.5-5.1)
[2021-07-16] MEDS ORDERED: FUROSEMIDE 40 MG/4 ML VIAL IV ONE (06:30)
[2021-07-16] MEDS ORDERED: DIAZEPAM 2 MG TABLET PO ONE (10:32)
[2021-07-16] MEDS: PANTOPRAZOLE 40 MG VIAL IV SCH (10:34)
[2021-07-16] MEDS ORDERED: ACETAMINOPHEN 325 MG TABLET PO PRN (11:31)
[2021-07-16] MEDS: DOXYCYCLINE HYCLATE 100 MG CAPSULE PO SCH ×2 (12:35→20:13)
[2021-07-16] MEDS: OLANZapine 5 MG TABLET PO SCH ×2 (12:35→20:13)
[2021-07-16] MEDS: POTASSIUM CHLORIDE 10 MEQ TABLET PO SCH (12:36)
[2021-07-16] MEDS: busPIRone 10 MG TABLET PO SCH ×2 (12:36→20:13)
[2021-07-16] MEDS: OXcarbazepine 300 MG TABLET PO SCH (12:37)
[2021-07-16] MEDS: DIAZEPAM 2 MG TABLET PO SCH ×2 (16:26→20:13)
[2021-07-16] MEDS: FERROUS SULFATE 325 MG TABLET PO SCH (16:27)
[2021-07-16] MEDS ORDERED: OXcarbazepine 300 MG TABLET PO SCH (21:00)
[2021-07-17] MEDS ORDERED: METOPROLOL SUCCINATE XL 50 MG TABLET PO SCH (09:00)
[2021-07-17] MEDS ORDERED: MIRTAZAPINE 15 MG TABLET PO SCH (09:00)
[2021-07-17] MEDS ORDERED: ASPIRIN EC 81 MG TABLET PO SCH (09:00)
[2021-07-17] MEDS: FERROUS SULFATE 325 MG TABLET PO SCH (09:12)
[2021-07-17] MEDS: DIAZEPAM 2 MG TABLET PO SCH ×2 (09:12→15:43)
[2021-07-17] MEDS: POTASSIUM CHLORIDE 10 MEQ TABLET PO SCH (09:12)
[2021-07-17] MEDS: OXcarbazepine 300 MG TABLET PO SCH (09:13)
[2021-07-17] MEDS: busPIRone 10 MG TABLET PO SCH (09:14)
[2021-07-17] MEDS: DOXYCYCLINE HYCLATE 100 MG CAPSULE PO SCH (09:14)
[2021-07-17] MEDS: OLANZapine 5 MG TABLET PO SCH (09:14)
[2021-07-17] MEDS: PANTOPRAZOLE 40 MG VIAL IV SCH (09:18)
[2021-07-17 12:49] VITALS: BP 151/76
== END 2021-07-17 15:38 ==
LOC: N.ED 22:25 → N.EDINP 22:25 → N.4E 07-16 08:04
PROVIDERS: ADMIT Internal Medicine; ATTEND Internal Medicine